=== PATIENT | male | born 1955 | race Caucasian/White ===

== ENCOUNTER 2023-04-09 16:57 | Observation (INO) | payer OTHER ==
[~2023-04-09] VITALS: Ht 172.7 cm; Wt 94.8 kg
[2023-04-09 17:15] VITALS: BP_SYST 159; PULSE 110; RESP 20; TEMP 98.1; O2SAT 98
[2023-04-09] MEDS ORDERED: PIPERACILLIN/TAZO 3.375 GM in D5W 50 ML IV ONE (17:30)
[2023-04-09] MEDS ORDERED: NS 1000 ML IV.SOLN IV ONE (17:30)
[2023-04-09 17:43] LABS: BASOPHILS % (AUTO) 0.5 % (0.0-2.0); EOSINOPHILS # (AUTO) 0.1 K/uL (0.0-0.4); EOSINOPHILS % (AUTO) 2.1 % (0.0-4.0); HEMATOCRIT 36.7 % (36-54); HEMOGLOBIN 12.7 g/dL (14.0-18.0); LYMPHOCYTES # (AUTO) 0.4 K/uL (1.0-5.5); LYMPHOCYTES % (AUTO) 5.6 % (20.5-51.5); MEAN CORPUSCULAR HEMOGLOBIN 30 pg (27-31); MEAN CORPUSCULAR HGB CONC 35 % (32-36); MEAN CORPUSCULAR VOLUME 87 fL (79.0-98.0); MONOCYTES # (AUTO) 0.4 K/uL (0.0-1.0); MONOCYTES % (AUTO) 5.8 % (1.7-9.3); PLATELET COUNT (AUTO) 248 K/uL (130-430); RED BLOOD CELL COUNT(AUTO) 4.23 MIL/uL (4.2-6.2); RED CELL DISTRIBUTION WIDTH 14.9 % (9.0-15.0)
[2023-04-09 17:54] LABS: PROTHROMBIN TIME 10.2 SECS (9.5-12.5)
[2023-04-09 17:57] LABS: ALANINE AMINOTRANSFERASE 42 U/L (12-78); ALBUMIN 3.8 g/dL (3.4-4.8); ANION GAP 14 (5-15); ASPARTATE AMINOTRANSFERASE 31 U/L (10-37); CALCIUM 7.8 mg/dL (8.4-11.0); CARBON DIOXIDE 19 mmol/L (23-29); CHLORIDE 106 mmol/L (98-107); GFR AFRICAN AMERICAN 46 mL/min (>90); GLUCOSE 179 mg/dL (74-106); POTASSIUM 4.1 mmol/L (3.5-5.1); SODIUM SERUM 139 mmol/L (136-145); TOTAL BILIRUBIN 0.4 mg/dL (0.0-1.0); TOTAL PROTEIN, SERUM 7.6 g/dL (6.4-8.3); UREA NITROGEN, BLOOD 35 mg/dL (8-21)
[2023-04-09 17:58] LABS: GFR NON AFRICAN-AMERICAN 38 mL/min (>90)
[2023-04-09] MEDS ORDERED: PIPERACILLIN/TAZOBACTAM 3.375 GM/VIAL (ZOSYN) IV ONE ×2 (17:58)
[2023-04-09 18:00] LABS: BILIRUBIN,DIRECT 0.1 mg/dL (0.0-0.3); BILIRUBIN,URINE NEGATIVE (NEGATIVE); BLOOD, URINE 3+ (NEGATIVE); CLARITY/URINE CLEAR (CLEAR); COLOR,URINE YELLOW (YELLOW); GLUCOSE,URINE 1+ (NEGATIVE); KETONES,URINE NEGATIVE (NEGATIVE); LEUKOCYTE ESTERASE ,URINE NEGATIVE (NEGATIVE); NITRITE, URINE NEGATIVE (NEGATIVE); PROTEIN URINE 1+ (NEGATIVE); UROBILINOGEN,URINE 0.2 (0.2-1.0)
[2023-04-09 18:07] LABS: BACTERIA,URINE RARE /HPF (None Seen); RBC,URINE 50-80 /HPF (0-3); WBC,URINE 0-3 /HPF (0-3)
[2023-04-09 18:08] LABS: MUCUS,URINE None Seen /LPF (None Seen)
[2023-04-09 23:00] VITALS: BP_SYST 152; PULSE 103; RESP 20; TEMP 97.9; O2SAT 96
[2023-04-09 23:10] VITALS: BP_SYST 152; PULSE 103; RESP 20; TEMP 97.9
[2023-04-10] MEDS: D5/0.45 NS 1,000 ML IV SCH ×2 (03:50→06:45)
[2023-04-10 07:44] VITALS: BP_SYST 124; PULSE 98; RESP 16; TEMP 98.1; O2SAT 98
[2023-04-10 07:45] VITALS: O2SAT 98
[2023-04-10] MEDS: LEVOFLOXACIN 250 MG/D5W 50 ML IV SCH (08:56)
[2023-04-10] MEDS ORDERED: cefTRIAXone 1 GM IVPB PREMIX 50 ML IV SCH (09:00)
[2023-04-10] MEDS ORDERED: LIDOCAINE 2% JELLY UROJECT 10 ML MM ONE (10:30)
[2023-04-10 11:57] VITALS: BP_SYST 152; PULSE 105; RESP 18; TEMP 97.6; O2SAT 96
[2023-04-10 16:26] VITALS: BP_SYST 140; PULSE 107; RESP 19; TEMP 98.1; O2SAT 97
[2023-04-10 20:00] VITALS: BP_SYST 168; PULSE 103; RESP 20; TEMP 97.5; O2SAT 98
[2023-04-10] MEDS: traMADol HCL HCL 50 MG TABLET (ULTRAM) PO PRN (20:38)
[2023-04-11 01:06] VITALS: BP_SYST 151; PULSE 96; RESP 21; TEMP 98.1; O2SAT 99
[2023-04-11] MEDS: D5/0.45 NS 1,000 ML IV SCH ×3 (04:12→11:56)
[2023-04-11 06:17] LABS: BASOPHILS % (AUTO) 0.6 % (0.0-2.0); EOSINOPHILS # (AUTO) 0.2 K/uL (0.0-0.4); EOSINOPHILS % (AUTO) 3.7 % (0.0-4.0); HEMATOCRIT 37.1 % (36-54); HEMOGLOBIN 12.7 g/dL (14.0-18.0); MEAN CORPUSCULAR HEMOGLOBIN 30 pg (27-31); MEAN CORPUSCULAR HGB CONC 34 % (32-36); MEAN CORPUSCULAR VOLUME 88 fL (79.0-98.0); MONOCYTES # (AUTO) 0.7 K/uL (0.0-1.0); MONOCYTES % (AUTO) 11.1 % (1.7-9.3); NEUTROPHILS % (AUTO) 67.6 % (40.0-70.0); PLATELET COUNT (AUTO) 220 K/uL (130-430); RED BLOOD CELL COUNT(AUTO) 4.24 MIL/uL (4.2-6.2); RED CELL DISTRIBUTION WIDTH 15.1 % (9.0-15.0)
[2023-04-11 07:03] LABS: CALCIUM 8.5 mg/dL (8.4-11.0); CREATININE 1.77 mg/dL (0.55-1.30); POTASSIUM 3.9 mmol/L (3.5-5.1)
[2023-04-11 08:12] VITALS: BP_SYST 146; PULSE 85; RESP 20; TEMP 97.9; O2SAT 96
[2023-04-11] MEDS: TAMSULOSIN HCL 0.4 MG CAP PO SCH (08:18)
[2023-04-11] MEDS: LEVOFLOXACIN 250 MG/D5W 50 ML IV SCH (08:19)
[2023-04-11 11:30] VITALS: BP_SYST 120; PULSE 107; RESP 19; TEMP 97.6; O2SAT 98
[2023-04-11] MEDS: traMADol HCL HCL 50 MG TABLET (ULTRAM) PO PRN ×2 (13:44→21:16)
[2023-04-11 16:45] VITALS: BP_SYST 159; PULSE 96; RESP 19; TEMP 98.1; O2SAT 99
[2023-04-11 17:38] VITALS: BP_SYST 130; PULSE 102; RESP 18; TEMP 97.8; O2SAT 99
[2023-04-11 20:00] VITALS: O2SAT 93
[2023-04-12 00:11] VITALS: BP_SYST 150; PULSE 82; RESP 20; TEMP 97.2; O2SAT 100
[2023-04-12 04:30] LABS: BASOPHILS % (AUTO) 0.7 % (0.0-2.0); EOSINOPHILS # (AUTO) 0.3 K/uL (0.0-0.4); EOSINOPHILS % (AUTO) 4.8 % (0.0-4.0); HEMATOCRIT 33.6 % (36-54); HEMOGLOBIN 11.5 g/dL (14.0-18.0); LYMPHOCYTES % (AUTO) 19.6 % (20.5-51.5); MEAN CORPUSCULAR HEMOGLOBIN 30 pg (27-31); MEAN CORPUSCULAR HGB CONC 34 % (32-36); MEAN CORPUSCULAR VOLUME 87 fL (79.0-98.0); MONOCYTES # (AUTO) 0.5 K/uL (0.0-1.0); MONOCYTES % (AUTO) 10.2 % (1.7-9.3); NEUTROPHILS # (AUTO) 3.4 K/uL (1.8-7.7); NEUTROPHILS % (AUTO) 64.7 % (40.0-70.0); PLATELET COUNT (AUTO) 198 K/uL (130-430); RED BLOOD CELL COUNT(AUTO) 3.85 MIL/uL (4.2-6.2); RED CELL DISTRIBUTION WIDTH 14.7 % (9.0-15.0); WHITE BLOOD COUNT (AUTO) 5.2 K/uL (4.8-10.8)
[2023-04-12 04:42] LABS: CALCIUM 8.2 mg/dL (8.4-11.0); CREATININE 1.93 mg/dL (0.55-1.30); POTASSIUM 3.8 mmol/L (3.5-5.1)
[2023-04-12] MEDS: traMADol HCL HCL 50 MG TABLET (ULTRAM) PO PRN ×2 (05:06→12:51)
[2023-04-12] MEDS ORDERED: TAMS0.4C96 PO (07:48)
[2023-04-12 08:00] VITALS: BP_SYST 142; PULSE 88; RESP 18; TEMP 97.1; O2SAT 97; O2SAT 99
[2023-04-12] MEDS ORDERED: ASPIRIN 81 MG TABLET(ECOTRIN) PO ONE (08:00)
[2023-04-12] MEDS: D5/0.45 NS 1,000 ML IV SCH ×2 (08:45→09:44)
[2023-04-12] MEDS ORDERED: ASPIRIN 81 MG TAB.CHEW PO SCH (09:00)
[2023-04-12] MEDS: TAMSULOSIN HCL 0.4 MG CAP PO SCH (09:42)
[2023-04-12] MEDS: LEVOFLOXACIN 250 MG/D5W 50 ML IV SCH (09:43)
[2023-04-12 11:13] VITALS: BP_SYST 132; PULSE 90; RESP 18; TEMP 96.6; O2SAT 99
[2023-04-12 16:07] VITALS: BP_SYST 132; PULSE 90; RESP 18; TEMP 96.6; O2SAT 99
[2023-04-12 17:07] VITALS: BP_SYST 132; PULSE 90; RESP 18; TEMP 96.6; O2SAT 99
[2023-04-12 20:49] VITALS: BP_SYST 150; PULSE 107; RESP 20; TEMP 97.8; O2SAT 98
[2023-04-13 01:06] LABS: % FREE PSA 23.8 % (.); FREE PSA 0.76 ng/mL; PROSTATE SPECIFIC AG TOTAL 3.2 ng/mL (0.0-4.0)
== END 2023-04-12 21:10 ==
LOC: SED 16:57 → SMU 20:38
PROVIDERS: ADMIT Specialist; ATTEND Specialist
DX: N31.9 Neuromuscular dysfunction of bladder, unspecified (principal); N13.30 Unspecified hydronephrosis; N17.9 Acute kidney failure, unspecified; E11.40 Type 2 diabetes mellitus with diabetic neuropathy, unspecified; S80.212A Abrasion, left knee, initial encounter; S80.211A Abrasion, right knee, initial encounter; I10 Essential (primary) hypertension; E78.5 Hyperlipidemia, unspecified; Z88.0 Allergy status to penicillin; Z79.899 Other long term (current) drug therapy; X58.XXXA Exposure to other specified factors, initial encounter; Y93.89 Activity, other specified; Y92.89 Other specified places as the place of occurrence of the external cause; Y99.8 Other external cause status
CPT/HCPCS: 96361 ×3; 96365; 80076; 80048 ×3; 81000; 81001; 85025 ×3; 85610; 85730; 87040; 87086; 84484; 36415 ×4; 93005; 71045; 73560; 70450; 76376 ×2; 76770; 99285; 83605; 96366 ×3; 82570; 84302; 84153; 74176; 93880; 70551; 97530; 97116; 97162; J1956 ×4; J2543; G0378 ×4; 81015